=== PATIENT | male | born 1965 | race Caucasian/White ===

== ENCOUNTER → 2019-11-26 | Outpatient (CLI) | payer BC | LOC: COL.RAD 12:00 | DX: N50.82 Scrotal pain (principal) ==

== ENCOUNTER 2019-12-03 07:42 | Day surgery (SDC) | payer BC ==
[~2019-12-03] VITALS: Ht 177.8 cm; Wt 110.5 kg
[2019-12-03] VITALS (7 sets, daily range): BP systolic 132–153; BP diastolic 76–94; PULSE 61–74; TEMP 97.4–97.6
[2019-12-03] MEDS ORDERED: MOBIC15 MG PO (08:09)
[2019-12-03] MEDS ORDERED: PRINIVIL5 MG PO (08:10)
[2019-12-03] MEDS ORDERED: LYSINE 500500 MG/TAB PO (08:11)
[2019-12-03] MEDS ORDERED: ONE-A-DAY ESSE1 EACH PO (08:11)
--- NOTE | 2019-12-03 11:30 | NUR ---
Patient arrives back to [facility] alert, denies nausea, complains of right lower abdominal pain 4/10. Patient monitor applied, vitals stable. Patient's spouse at bedside. Patient is very emotional. Patient comforted and given support.
--- NOTE | 2019-12-03 11:35 | NUR ---
Dressing on right lower abdomen is clean, dry and intact.
--- NOTE | 2019-12-03 11:40 | NUR ---
Patient given water and crackers at this time.
--- NOTE | 2019-12-03 12:00 | NUR ---
Patient given PRN pain medication at this time. Reports left lower abdominal pain 5/10.
--- NOTE | 2019-12-03 12:15 | NUR ---
Patient tolerated water and crackers without any nausea.
--- NOTE | 2019-12-03 12:30 | NUR ---
Patient sleeping comfortably on bed at this time. Spouse at bedside.
--- NOTE | 2019-12-03 12:45 | NUR ---
Patient reports pain is much more tolerable and states he is ready to go home and rest in his own bed.
--- NOTE | 2019-12-03 12:50 | NUR ---
Patient up to restroom at this time and is able to urinate without any complications.
--- NOTE | 2019-12-03 13:00 | NUR ---
Dismissal instructions gone over with patient and patient's spouse. Both verbalize understanding and all questions answered.
--- NOTE | 2019-12-03 13:05 | NUR ---
Patient discharged to patient enterance and to private vehicle via wheelchair, without any complications. Patient and spouse leave thanking staff for services.
== END 2019-12-03 13:05 | disposition home or self-care (01) ==
LOC: SDCO 07:42
DX: C62.12 Malignant neoplasm of descended left testis (principal); I10 Essential (primary) hypertension; Z98.52 Vasectomy status
CPT/HCPCS: J0690; J1100; J1170; J2405; J2704; J3010; J7120